=== PATIENT | female | born 1945 | race Caucasian/White ===

== ENCOUNTER → 2017-06-28 | Outpatient (CLI) | payer MEDICARE, OTHER ==
[~2017-06-28] MED LIST: ASPI325EC PO; ATEN100 PO; ATEN25 PO; ENAL5 PO; HYDCHL12.5 PO; LISI20 PO; LOVA20 PO; METPRE4DP PO; PRAV20 PO; RANI150 PO; Zofran8 MG PO; [UNRECOGNIZED DRUG - REMARK]
== END | disposition home or self-care (01) ==
LOC: LAB 12:29 → LAB SHORT 12:29
PROVIDERS: Registered Nurse
DX: Z12.4 Encounter for screening for malignant neoplasm of cervix (principal)
CPT/HCPCS: G0123

== ENCOUNTER → 2017-12-06 | Outpatient (CLI) | payer MEDICARE, OTHER ==
[~2017-12-06] MED LIST changes: +AMLO5 PO; +XARELTO20 MG PO
[2017-12-07 12:40] LABS: Bilirubin, Urine Neg (Neg); Blood, Urine 4+ (Neg); Glucose Qualitative, Urine Neg (Neg); Ketones, Urine Neg (Neg); Leukocyte Esterase, Urine 3+ (Neg); Nitrite, Urine Neg (Neg); Protein, Urine 2+ (Neg); Specific Gravity, Urine 1.025 (1.003-1.022); Urobilinogen, Urine 1+ (Normal)
[2017-12-07 13:20] LABS: Appearance, Urine Cloudy (Clear); Color, Urine Yellow (P-Yellow)
[2017-12-07 13:21] LABS: White Blood Cells, Urine 25-50 /hpf (0-5)
[2017-12-07 13:22] LABS: Amorphous Mod (0-Heavy); Bacteria Mod /hpf; Mucus Light (0-Heavy); Squamous Epithelial Cells Mod /hpf (Few)
== END | disposition home or self-care (01) ==
LOC: LAB SHORT 17:40 → LAB 17:40
PROVIDERS: Registered Nurse
DX: R82.90 Unspecified abnormal findings in urine (principal); R35.0 Frequency of micturition
CPT/HCPCS: 81001; 87077; 87086; 87186

== ENCOUNTER 2018-01-02 20:45 | Emergency (ER) | payer MEDICARE, OTHER ==
[~2018-01-02] VITALS: Ht 167.6 cm; Wt 65.8 kg
[2018-01-02 21:28] LABS: BASOPHILS ABSOLUTE AUTO 0.05 K/mm3 (0.00-0.23); BASOPHILS PERCENT AUTO 0 % (0-2); EOSINOPHILS PERCENT AUTO 2 % (0-6); Hematocrit 44.2 % (33.0-51.0); Hemoglobin 14.5 g/dL (11.5-16.0); IMMATURE GRAN ABSOLUTE AUTO 0.06 K/mm3 (0.00-0.10); IMMATURE GRAN PERCENT AUTO 0 % (0-1); LYMPHOCYTES ABSOLUTE AUTO 3.78 K/mm3 (0.84-5.20); LYMPHOCYTES PERCENT AUTO 27 % (21-46); MONOCYTES ABSOLUTE AUTO 1.12 K/mm3 (0.16-1.47); MONOCYTES PERCENT AUTO 8 % (4-13); Mean Corpuscular HGB Conc 32.8 g/dL (31.5-36.5); Mean Corpuscular Volume 85 fL (80-100); Mean Platelet Volume 12.8 fL (9.1-12.4); NEUTROPHILS ABSOLUTE AUTO 8.59 K/mm3 (1.96-9.15); NEUTROPHILS PERCENT AUTO 62 % (41-73); Platelet Count 218 K/mm3 (150-400); RDW Standard Deviation 43.5 fL (35.1-46.3); Red Blood Cell Count 5.18 M/mm3 (3.80-5.20)
[2018-01-02 21:53] LABS: Alanine Aminotransfer (ALT/SGP 22 U/L (12-78); Albumin, Blood 3.5 g/dL (3.4-5.0); Albumin/Globulin Ratio 0.9 (0.8-1.8); Alk Phos 68 U/L (50-136); Anion Gap 8 mmol/L (6-16); Aspartate Aminotrans (AST/SGOT 21 U/L (12-37); Bilirubin, Total 0.6 mg/dL (0.1-1.0); Blood Urea Nitrogen 17 mg/dL (8-24); Bun/Creatinine Ratio 8.9 (12.0-20.0); CO2, Blood 25 mmol/L (21-32); Calcium, Blood 9.1 mg/dL (8.5-10.1); Chloride, Blood 107 mmol/L (98-108); Glomerular Filtration Rate 28 (60-); Glucose, Blood 139 mg/dL (70-99); Potassium, Blood 3.7 mmol/L (3.5-5.5); Sodium, Blood 140 mmol/L (136-145); Total Protein, Blood 7.5 g/dL (6.4-8.2); Troponin I <0.015 ng/mL (0.000-0.040)
== END 2018-01-02 23:40 | disposition home or self-care (01) ==
LOC: ER 20:45
PROVIDERS: Internal Medicine
DX: R55 Syncope and collapse (principal); S20.212A Contusion of left front wall of thorax, initial encounter; E86.0 Dehydration; I95.9 Hypotension, unspecified; N17.9 Acute kidney failure, unspecified; I10 Essential (primary) hypertension; I25.2 Old myocardial infarction; I48.91 Unspecified atrial fibrillation; F17.200 Nicotine dependence, unspecified, uncomplicated; Z91.030 Bee allergy status; Z88.7 Allergy status to serum and vaccine; Z79.899 Other long term (current) drug therapy; W19.XXXA Unspecified fall, initial encounter; Y92.000 Kitchen of unspecified non-institutional (private) residence as the place of occurrence of the external cause
CPT/HCPCS: 36415; 71101; 80053; 84484; 85025; 93005; 93010; 96360; 99284-25; J7030

== ENCOUNTER → 2019-01-07 | Outpatient (CLI) | payer MEDICARE, OTHER ==
[2019-01-07 15:41] LABS: BASOPHILS ABSOLUTE AUTO 0.04 K/mm3 (0.00-0.23); BASOPHILS PERCENT AUTO 1 % (0-2); EOSINOPHILS ABSOLUTE AUTO 0.07 K/mm3 (0.00-0.68); EOSINOPHILS PERCENT AUTO 1 % (0-6); Hematocrit 44.2 % (33.0-51.0); Hemoglobin 14.5 g/dL (11.5-16.0); IMMATURE GRAN ABSOLUTE AUTO 0.02 K/mm3 (0.00-0.10); IMMATURE GRAN PERCENT AUTO 0 % (0-1); LYMPHOCYTES ABSOLUTE AUTO 2.12 K/mm3 (0.84-5.20); LYMPHOCYTES PERCENT AUTO 29 % (21-46); MONOCYTES ABSOLUTE AUTO 0.57 K/mm3 (0.16-1.47); MONOCYTES PERCENT AUTO 8 % (4-13); Mean Corpuscular HGB Conc 32.8 g/dL (31.5-36.5); Mean Corpuscular Volume 85 fL (80-100); Mean Platelet Volume 12.5 fL (9.1-12.4); NEUTROPHILS ABSOLUTE AUTO 4.56 K/mm3 (1.96-9.15); NEUTROPHILS PERCENT AUTO 62 % (41-73); Platelet Count 193 K/mm3 (150-400); RDW Coefficient Variation 14.6 % (11.7-14.2); RDW Standard Deviation 45.3 fL (35.1-46.3); Red Blood Cell Count 5.18 M/mm3 (3.80-5.20); White Blood Cell Count 7.38 K/mm3 (4.00-11.30)
[2019-01-07 16:01] LABS: Anion Gap 6 mmol/L (6-16); Blood Urea Nitrogen 15 mg/dL (8-24); Bun/Creatinine Ratio 10.7 (12.0-20.0); CO2, Blood 29 mmol/L (21-32); Calcium, Blood 8.5 mg/dL (8.5-10.1); Chloride, Blood 106 mmol/L (98-108); Glomerular Filtration Rate 37 (60-); Glucose, Blood 93 mg/dL (70-99); Potassium, Blood 4.1 mmol/L (3.5-5.5); Sodium, Blood 141 mmol/L (136-145); Thyroid Stimulating Hormone 2.309 uIU/mL (0.360-4.800); Troponin I <0.017 ng/mL (0.000-0.040)
== END | disposition home or self-care (01) ==
LOC: LAB SHORT 15:36 → LAB EV 15:36
PROVIDERS: Physician Assistant Surgical
DX: R07.89 Other chest pain (principal); R20.2 Paresthesia of skin
CPT/HCPCS: 80048; 84443; 84484; 85025

== ENCOUNTER → 2019-03-18 | Outpatient (CLI) | payer MEDICARE, OTHER | END | disposition home or self-care (01) | LOC: LAB SHORT 12:44 → LAB EV 12:44 | DX: N39.0 Urinary tract infection, site not specified (principal) | CPT/HCPCS: 87077; 87086; 87186 ==

== ENCOUNTER → 2019-04-17 | Outpatient (CLI) | payer MEDICARE, OTHER | END | disposition home or self-care (01) | LOC: LAB SHORT 11:27 → LAB EV 11:27 | DX: N39.0 Urinary tract infection, site not specified (principal) | CPT/HCPCS: 87086 ==

== ENCOUNTER 2019-09-25 17:54 | Emergency (ER) | payer MEDICARE, OTHER ==
[~2019-09-25] VITALS: Ht 165.1 cm; Wt 74.8 kg
[2019-09-25] MEDS ORDERED: Norco 5-325 Ta1 EACH PO (18:56)
== END 2019-09-25 19:15 | disposition home or self-care (01) ==
LOC: ER 17:54
DX: S93.401A Sprain of unspecified ligament of right ankle, initial encounter (principal); Z91.030 Bee allergy status; Z88.7 Allergy status to serum and vaccine; Z79.899 Other long term (current) drug therapy; I10 Essential (primary) hypertension; I25.2 Old myocardial infarction; I48.91 Unspecified atrial fibrillation; F17.200 Nicotine dependence, unspecified, uncomplicated; X50.1XXA Overexertion from prolonged static or awkward postures, initial encounter
CPT/HCPCS: 73610; 99283-25; A9270-GY

== ENCOUNTER → 2020-03-21 | Outpatient (CLI) | payer MEDICARE, OTHER ==
[~2020-03-21] MED LIST changes: +Norco 5-325 Ta1 EACH PO
[2020-03-21 19:29] LABS: BASOPHILS ABSOLUTE AUTO 0.05 K/mm3 (0.00-0.23); BASOPHILS PERCENT AUTO 1 % (0-2); EOSINOPHILS ABSOLUTE AUTO 0.11 K/mm3 (0.00-0.68); EOSINOPHILS PERCENT AUTO 2 % (0-6); Hematocrit 48.9 % (33.0-51.0); Hemoglobin 15.3 g/dL (11.5-16.0); IMMATURE GRAN ABSOLUTE AUTO 0.01 K/mm3 (0.00-0.10); IMMATURE GRAN PERCENT AUTO 0 % (0-1); LYMPHOCYTES PERCENT AUTO 30 % (21-46); MONOCYTES PERCENT AUTO 9 % (4-13); Mean Corpuscular HGB 27.7 pg (26.0-34.0); Mean Corpuscular HGB Conc 31.3 g/dL (31.5-36.5); Mean Corpuscular Volume 89 fL (80-100); NEUTROPHILS ABSOLUTE AUTO 3.88 K/mm3 (1.96-9.15); NEUTROPHILS PERCENT AUTO 58 % (41-73); Platelet Count 198 K/mm3 (150-400); RDW Coefficient Variation 14.3 % (11.7-14.2); RDW Standard Deviation 46.3 fL (35.1-46.3); Red Blood Cell Count 5.52 M/mm3 (3.80-5.20); White Blood Cell Count 6.65 K/mm3 (4.00-11.30)
[2020-03-21 19:48] LABS: Alanine Aminotransfer (ALT/SGP 28 U/L (12-78); Albumin, Blood 3.6 g/dL (3.4-5.0); Albumin/Globulin Ratio 1.1 (0.8-1.8); Alk Phos 87 U/L (50-136); Anion Gap 6 mmol/L (6-16); Aspartate Aminotrans (AST/SGOT 21 U/L (12-37); Bilirubin, Total 0.5 mg/dL (0.1-1.0); Blood Urea Nitrogen 20 mg/dL (8-24); Bun/Creatinine Ratio 16.3 (12.0-20.0); CHOL/HDL RATIO 3.6; CO2, Blood 26 mmol/L (21-32); Calcium, Blood 9.2 mg/dL (8.5-10.1); Chloride, Blood 110 mmol/L (98-108); Cholesterol 176 mg/dL (50-200); Creatinine, Blood 1.23 mg/dL (0.40-1.00); Globulin, Blood 3.4 g/dL (2.2-4.0); Glomerular Filtration Rate 46 (60-); Glucose, Blood 96 mg/dL (70-99); HDL Cholesterol 49 mg/dL (>39); LDL/HDL RATIO 2.1; Low Density Lipoprotein Chol 104 mg/dL (0-110); Potassium, Blood 4.1 mmol/L (3.5-5.5); Sodium, Blood 142 mmol/L (136-145); Triglycerides 114 mg/dL (30-160); Very Low Density Lipoprot Chol 22 mg/dL (6-32)
== END | disposition home or self-care (01) ==
LOC: LAB SHORT 17:27
PROVIDERS: Nurse Practitioner Family
DX: Z11.59 Encounter for screening for other viral diseases (principal); E78.00 Pure hypercholesterolemia, unspecified; I10 Essential (primary) hypertension
CPT/HCPCS: 80053; 80061; 84443; 85025; 86803

== ENCOUNTER → 2020-10-22 | Outpatient (CLI) | payer MEDICARE, OTHER | END | disposition home or self-care (01) | LOC: LAB SHORT 08:06 | DX: L60.2 Onychogryphosis (principal); B35.1 Tinea unguium | CPT/HCPCS: 88305; 88312 ==

== ENCOUNTER → 2021-05-03 | Outpatient (CLI) | payer MEDICARE, OTHER ==
[2021-05-03 15:04] LABS: BASOPHILS ABSOLUTE AUTO 0.03 K/mm3 (0.00-0.23); BASOPHILS PERCENT AUTO 0 % (0-2); EOSINOPHILS ABSOLUTE AUTO 0.03 K/mm3 (0.00-0.68); EOSINOPHILS PERCENT AUTO 0 % (0-6); Hematocrit 47.6 % (33.0-51.0); IMMATURE GRAN ABSOLUTE AUTO 0.01 K/mm3 (0.00-0.10); IMMATURE GRAN PERCENT AUTO 0 % (0-1); LYMPHOCYTES PERCENT AUTO 9 % (21-46); MONOCYTES ABSOLUTE AUTO 0.76 K/mm3 (0.16-1.47); MONOCYTES PERCENT AUTO 11 % (4-13); Mean Corpuscular HGB 29.1 pg (26.0-34.0); Mean Corpuscular HGB Conc 33.6 g/dL (31.5-36.5); Mean Corpuscular Volume 87 fL (80-100); Mean Platelet Volume 12.1 fL (9.1-12.4); NEUTROPHILS PERCENT AUTO 79 % (41-73); Platelet Count 157 K/mm3 (150-400); RDW Coefficient Variation 13.9 % (11.7-14.2); RDW Standard Deviation 43.9 fL (35.1-46.3); Red Blood Cell Count 5.49 M/mm3 (3.80-5.20); White Blood Cell Count 6.73 K/mm3 (4.00-11.30)
[2021-05-03 15:31] LABS: Albumin, Blood 3.7 g/dL (3.4-5.0); Albumin/Globulin Ratio 1.1 (0.8-1.8); Bilirubin, Total 0.4 mg/dL (0.1-1.0); Bun/Creatinine Ratio 9.3 (12.0-20.0); Calcium, Blood 8.3 mg/dL (8.5-10.1); Creatinine, Blood 1.08 mg/dL (0.40-1.00); Globulin, Blood 3.4 g/dL (2.2-4.0); Potassium, Blood 4.1 mmol/L (3.5-5.5); Total Protein, Blood 7.1 g/dL (6.4-8.2)
== END | disposition home or self-care (01) ==
LOC: LAB 14:56 → LAB SHORT 14:56
PROVIDERS: General Practice
DX: R07.9 Chest pain, unspecified (principal)
CPT/HCPCS: 80053; 84484; 85025

== ENCOUNTER 2021-07-05 06:28 | Inpatient (IN) | payer MEDICARE, OTHER ==
[~2021-07-05] VITALS: Ht 167.6 cm; Wt 74.8 kg
[~2021-07-05 06:28] MED LIST changes: -XARELTO20 MG PO; +Xarelto PO
[2021-07-05 06:49] LABS: BASOPHILS ABSOLUTE AUTO 0.03 K/mm3 (0.00-0.23); BASOPHILS PERCENT AUTO 0 % (0-2); EOSINOPHILS ABSOLUTE AUTO 0.11 K/mm3 (0.00-0.68); EOSINOPHILS PERCENT AUTO 1 % (0-6); Hematocrit 48.6 % (33.0-51.0); Hemoglobin 15.9 g/dL (11.5-16.0); IMMATURE GRAN ABSOLUTE AUTO 0.04 K/mm3 (0.00-0.10); IMMATURE GRAN PERCENT AUTO 0 % (0-1); LYMPHOCYTES ABSOLUTE AUTO 1.58 K/mm3 (0.84-5.20); LYMPHOCYTES PERCENT AUTO 11 % (21-46); MONOCYTES ABSOLUTE AUTO 0.61 K/mm3 (0.16-1.47); MONOCYTES PERCENT AUTO 4 % (4-13); Mean Corpuscular HGB 28.7 pg (26.0-34.0); Mean Corpuscular HGB Conc 32.7 g/dL (31.5-36.5); Mean Corpuscular Volume 88 fL (80-100); Mean Platelet Volume 12.5 fL (9.1-12.4); NEUTROPHILS ABSOLUTE AUTO 11.43 K/mm3 (1.96-9.15); NEUTROPHILS PERCENT AUTO 83 % (41-73); Platelet Count 190 K/mm3 (150-400); RDW Coefficient Variation 14.5 % (11.7-14.2); RDW Standard Deviation 46.7 fL (35.1-46.3); Red Blood Cell Count 5.54 M/mm3 (3.80-5.20)
[2021-07-05 07:08] LABS: Albumin, Blood 3.5 g/dL (3.4-5.0); Albumin/Globulin Ratio 0.9 (0.8-1.8); Bilirubin, Total 0.3 mg/dL (0.1-1.0); Bun/Creatinine Ratio 13.4 (12.0-20.0); Calcium, Blood 8.7 mg/dL (8.5-10.1); Creatinine, Blood 1.12 mg/dL (0.40-1.00); Globulin, Blood 3.9 g/dL (2.2-4.0); Potassium, Blood 3.8 mmol/L (3.5-5.5); Total Protein, Blood 7.4 g/dL (6.4-8.2)
[2021-07-05 08:30] LABS: CHOL/HDL RATIO 3.9; Cholesterol 178 mg/dL (50-200); HDL Cholesterol 46 mg/dL (>39); LDL/HDL RATIO 2.1; Low Density Lipoprotein Chol 97 mg/dL (0-110); Triglycerides 173 mg/dL (30-160); Very Low Density Lipoprot Chol 34 mg/dL (6-32)
--- NOTE | 2021-07-05 10:00 | NUR ---
PT CAME IN FROM ED AND C/O OF CP, NAUSEA, AND VOMITING. PT HAS HX OF MO IN 2010 PER PT. PT STATED SHE HAS DISCOMFORT ON HER MID LOWER BREAST WHEN SHE CAME IN TO ED , BUT DENIES DURING ASSESSMENT AT BEDSIDE WITH DR SANTACRUZ. SKIN INTACT, FAMILY AT BEDSIDE. PT GIVEN MED PER EMAR. BP IS ELEVATED AND MED GIVEN FOR HTN. PT ON TELE NS @60S. PT WILL HAVE A STRESS TEST TOMORROW. SEE ORDERS FOR PROCEDURE. PT IS 1P ASSIST, PT AOX4. BED IS IN THE LOWEST POSITION AND CALL LIGHT WITHIN REACH
[2021-07-05] MEDS ORDERED: VITAMIN D325 MC3 PO (11:19)
[2021-07-05] MEDS ORDERED: C COMPLEX1000 M1 PO (11:20)
--- NOTE | 2021-07-05 16:19 | NUR ---
NOTIFIED THE DR FOR SINUS PAUSE PER TELE. DR WILL TAKE A LOOK AT IT AT THE [facility]. PT DENIES ANY CHEST PAIN OR DISCOMFORT
--- NOTE | 2021-07-05 16:42 | NUR ---
SHIFT SUMMARY PT AOX4; CALLS APPROPRIATELY. STANDBY TO THE BATHROOM. PT FAMILY AT BEDSIDE. DENIES ANY CP AT THIS TIME. PT HAS A HEADACHE THAT WON'T GO AWAY, MEDICATED PER EMAR. NS RUNNING. NS TO GUSTABO 50S ON TELE. PT WILL HAVE A STRESS TEST IN THE AM. NAUSEA RESOLVING WITH MEDICATION. BED IS IN THE LOWEST POSTIION AND CALL LIGHT WITHIN REACH .
--- NOTE | 2021-07-05 18:28 | NUR ---
PT IS HAVING CHEST DISCOMFORT, SHE STATED "IT IS NOT A CHEST PAIN, BUT IT FEELS LIKE A DISCOMFORT AND WEIRD." DENIES ANY TINGLING OR ANY PAIN THAT RADIATE THROUGH NECK AND ARMS. THIS RN CALLED ERP MANAGER AND PT CONVERTED TO AFIB @ 120'S. PT WAS SINUS GUSTABO AND NSR ALL DAY. CALLED DR AND PT RECEIVED ONE DOSE OF NITRO SL. CHECKED THE BP IS STABLE, BUT HR IS TACHY 115-120S IRREGULAR.
--- NOTE | 2021-07-05 18:42 | NUR ---
PT STATED CHEST DISCOMFORT IS GETTING BETTER, RATING THE DISCOMFORT OF 2/10. CALLED THE DR FOR THE INCREASED HR; RECEIVED AN ORDER FOR ONE TIME DOSE OF METOPROLOL 25 MG.
--- NOTE | 2021-07-05 18:50 | NUR ---
PT IS NOW BACK TO SINUS GUSTABO 50'S PER TELE.
--- NOTE | 2021-07-06 06:29 | NUR ---
SUMMARY PT NPO FOR STRESS TEST TODAY. NOC/O CP THIS SHIFT.
--- NOTE | 2021-07-06 07:53 | NUR ---
MED PT WTIH TYLENOL FOR C/O H/A-PT STATES GETS TENORIO BASELINE AT HOME, WHICH SHE TREATS WITH TYLENOL.
[2021-07-06] MEDS ORDERED: AMIODARONE HCL100 M3 PO (16:35)
--- NOTE | 2021-07-06 18:06 | NUR ---
SHIFT SUMMARY PT A&OX4. PT DENIED CP, N/V, DYSPNEA & GENERAL PAIN THIS SHIFT. IS UP WITH MIN STDBY FOR USE OF RESTROOM. VSS. WILL HAVE STRESS PORTION OF STRESS TEST IN THE MORNING. NPO AFTER MIDNIGHT. PENDING STRESS TEST RESULTS, PT ANTICIPATES DC HOME TOMORROW.
--- NOTE | 2021-07-07 01:52 | NUR ---
TELE MONITOR PT WAS ON SINUS GUSTABO AT THE BEGINNING OF SHIFT. THEN SINUS RHYTHM AT 80'S UNTIL 2250. ELECTRICAL AND INSTRUMENTATION MANAGER JEANIE CALLED STATING PT ON AFIB 120-140'S. PT DENIES CHEST PAIN, NUMBNESS, TINGLING SENSATION, DIZZINESS AND SOB. CALLED DR. SPRINGER, NOTIFIED OF THIS. NEW ORDER FOR METOPROLOL TART 25MG NOW AND BID. HEART RATE NOT IMPROVED IN AN HOUR. TELE CALLED STATING THAT PT HAD AN EPISODE OF SVT 6 BEATS FOR 3 SEC AT 0030, ALSO PT STARTED COUGHING MORE FREQUENTLY WHILE THIS HAPPENED. TELE CALLED AGAIN AND STATING THAT PT HAD VTACH EPISODE 5-6 BEATS ONCE EVERY FEW MINUTES. MONITORED AND ASSES PT. SHE IS ASYMPTOMATIC. CALLED DR. ADAMS, NOTIFIED AND NEW ORDER WAS BEEN ADDED FOR LOPRESSOR 5MG IV NOW. CALLED TELE PRIOR ADMINISTERING MED. PT ON AFIB AT 144, IV LOPRESSOR GIVEN AND HR AND RHYTHM IMPROVED AFTER 30 MINS, PT CONVERTED BACK TO SINUS RHYTHM AT 70'S PER TELE.
--- NOTE | 2021-07-07 03:00 | NUR ---
0220: TELE REPORTS PT ON 140'S AFIB. PT RESTING IN ROOM PER MILI SHARMA, ASYMPTOMATIC. WILL CONTINUE TO MONITOR.
--- NOTE | 2021-07-07 04:12 | NUR ---
SHIFT SUMMARY PT ADMITTED FOR CHEST PAIN, NAUSEA AND VOMITING. PT ON TELE: SEE TELE REPORT FROM PREVIOUS NOTE. PT CONVERT TO AFIB, HAD AN EPISODE OF SVT AND VTACH. NOTIFIED HOSPITALIST AND NEW ORDER FOR METOPROLOL PO GIVEN AND BID FOR 25MG. AND LOPRESSOR 5MG ADMINISTERED ONCE TO CONTROL AFIB HR ON 120-160'S. PT DENIES ANY SYMPTOMS, NO CHEST PAIN, NO SOB, NO DIZZINESS, NO NUMBNESS AND NO TINGLING SENSATION. AMBULATES IN THE ROOM WITH 1 SBA. SHOWERED BEFORE BED. VOIDS FREQUENLTY AT NIGHT. PT ALSO HAS CHRONIC MILD COUGH. PLAN FOR RESTING STRESS TEST TODAY AND EVAL FROM CARDIOLOGY CONSULT. NPO AFTER MIDNIGHT, NO CAFFEINE AFTER 8PM LAST NIGHT. CALL LIGHT WITHIN REACH. WILL PROVIDE REPORT TO ONCOMING NURSE.
[2021-07-07 08:39] LABS: Bun/Creatinine Ratio 11.5 (12.0-20.0); Calcium, Blood 8.4 mg/dL (8.5-10.1); Creatinine, Blood 0.96 mg/dL (0.40-1.00); Potassium, Blood 3.7 mmol/L (3.5-5.5)
--- NOTE | 2021-07-07 10:38 | NUR ---
PHYSICIAN CONTACT PATIENT CONVERTED TO AFIB AT ABOUT 0900. THIS RN ALERTED BY [employer] THAT HR WAS SUSTAINING AROUND 125. MORNING MEDICATIONS GIVEN. RECHECK OF VITALS SHOWED DECREASED BP, BUT STILL HR SUSTAINING IN THE 120'S. DR. JOSUE NOTIFIED. NEW ORDERS FOR ONE TIME DOSE OF IV DIGOXIN 0.25MG. PER DR. JOSUE, NO NEED TO DELAY IN FINISHING STRESS TEST, HEART CENTER AND NUCLEAR MEDICINE NOTIFIED.
--- NOTE | 2021-07-07 13:46 | NUR ---
PHYSICIAN CONTACT PT C/O RED ITCHY RASH VISIBLE ON TORSO, PLAMS OF HANDS & PT STATES IS ALSO IN THE GROIN AREA. PLACED CALL TO WHO GAVE ORDERS FOR PO BENADRYL.
--- NOTE | 2021-07-07 13:48 | NUR ---
NURSE NOTE PAID SEARCH SPECIALIST CONFIRMED PT REMAINS IN A. FIB WITH HR IN THE 120s WITH PVCs.
--- NOTE | 2021-07-07 14:22 | NUR ---
NURSE NOTE PT REPORTS RED ITCHY RASH IMPROVED SINCE TAKING BENADRYL. IS RESTING QUIETLY.
--- NOTE | 2021-07-07 18:37 | NUR ---
SHIFT SUMMARY PT A&OX4. TELE SHOWS PT IN & OUT OF A.FIB THROUGHOUT SHIFT WITH HR IN THE 115-130 RANGE. SHE DOES GO INTO SR ONCE IN AWHILE THOUGH IS UNABLE TO SUSTAIN. MD ORDERED LANOXIN IV WHICH DID NOT CONVERT HER TO SR. MD ORDERED PO AMIODARONE. FIRST DOSE OF AMIODARONE GIVEN @ 1600. MEDICATED HER WITH BENADRYL FOR A RED ITCHY RASH THAT SHE REPORTS STARTED LAST NIGHT WHICH SHE REPORTS HELPED. STRESS TEST COMPLETED TODAY. SHE IS INDEPENDENT IN THE ROOM. ANTICIPATES POSSIBLE DC HOME TOMORROW. PT HAS BEEN PLEASANT & COOPERATIVE WITH ALL CARE TODAY.
--- NOTE | 2021-07-08 04:21 | NUR ---
SHIFT SUMMARY ADMITTED FOR CHEST PAIN. FULL CODE. PLAN IS TO DC HOME WHEN STABLE. TELEMETRY: AFIB @ 99 BPM. SHE IS ON A CARDIAC DIET. STANDBY ASSIST - BRP. SHE SEES DR. PLASENCIA OUTPT. SHE DID BRIEFLY DROP TO 47 BPM A FEW TIMES THIS SHIFT, SHE WAS ASYMPTOMATIC. HX: AFIB, PA
--- NOTE | 2021-07-08 10:00 | NUR ---
AFIB: PATIENT CONVERTED BACK TO AFIB THIS MORNING AROUND 8:00. PATIENT REPORTS THAT SHE DID NOT NOTICE THIS CONVERSION. AT THIS TIME, PATIENT REPORTS THAT SHE CAN FEEL IT IN HER CHEST, BUT DENIES CHEST PAIN, SHORTNESS OF BREATH, FATIGUE OR DIZZINESS. SPOKE WITH SUPERVISOR PARTICLEBOARD. SHE IS AVERAGING 110S IN AFIB, OCCASIONALLY TOUCHING INTO THE 120S.
[2021-07-08] MEDS ORDERED: METO50 PO (14:43)
[2021-07-08] MEDS ORDERED: ALEVAZOL56.7 G1 TOP (14:43)
--- NOTE | 2021-07-08 17:20 | NUR ---
DISCHARGE SUMMARY: PATIENT DENIED PAIN OR DISCOMFORT THROUGHOUT THE SHIFT. WHEN THE PATIENT CONVERTED TO AFIB THIS MORNING, SHE REPORTED THAT SHE COULD "FEEL IT IN HER CHEST". PATIENT DENIED FATIGUE, SHORTNESS OF BREATH, OR DIZZINESS. PATIENT CONVERTED TO NSR/NSBRADY AROUND 11:00. PATIENT REMAINED IN NSR/NSBRADY UNTIL DISCHARGE. RATE VARIED FROM LOW 50S TO MID 60S. PATIENT CONTINUED TO DENY CHEST PAIN OR DISCOMFORT. SHE REPORTED FEELING EVEN BETTER THAN THIS MORNING. DISCHARGE RX FAXED TO [facility] ON [address] PER PATIENT REQUEST. DISCHARGE INSTRUCTIONS AND EDUCATION PROVIDED. ALL QUESTIONS AND CONCERNS ADDRESS. PATIENT DISCHARGE IN WHEELCHAIR WITH RN AND PATIENT'S SON. PATIENT STABLE AT TIME OF DISCHARGE.
== END 2021-07-08 16:20 | disposition home or self-care (01) | DRG 313 ==
LOC: ER 06:28 → MEDS 06:29 → ER 06:30 → MEDS 06:30
PROVIDERS: Emergency Medicine; ADMIT Internal Medicine
DX: R07.89 Other chest pain (principal); R11.2 Nausea with vomiting, unspecified; R00.1 Bradycardia, unspecified; D72.829 Elevated white blood cell count, unspecified; I48.0 Paroxysmal atrial fibrillation; I12.9 Hypertensive chronic kidney disease with stage 1 through stage 4 chronic kidney disease, or unspecified chronic kidney disease; N18.9 Chronic kidney disease, unspecified; I25.10 Atherosclerotic heart disease of native coronary artery without angina pectoris; E78.5 Hyperlipidemia, unspecified; I25.2 Old myocardial infarction; F17.200 Nicotine dependence, unspecified, uncomplicated; Z71.6 Tobacco abuse counseling; Z98.890 Other specified postprocedural states; Z88.7 Allergy status to serum and vaccine; Z91.030 Bee allergy status; Z79.01 Long term (current) use of anticoagulants; Z79.899 Other long term (current) drug therapy; Z98.51 Tubal ligation status
CPT/HCPCS: 36415; 71045; 78452; 80048; 80053; 80061; 83690; 84443; 84484; 85025; 93005; 93010; 93017; 93306; 94762; 96374; 96375; 99285-25; A9270; A9500; G0378; J0706; J1160; J1885; J2405; J2785

== ENCOUNTER 2021-08-07 08:56 | Emergency (ER) | payer MEDICARE, OTHER ==
[~2021-08-07] VITALS: Ht 165.1 cm; Wt 74.8 kg
[~2021-08-07 08:56] MED LIST changes: +ALEVAZOL56.7 G1 TOP; +AMIODARONE HCL100 M3 PO; +C COMPLEX1000 M1 PO; +METO50 PO; +VITAMIN D325 MC3 PO
[2021-08-07] MEDS ORDERED: METO10 PO (10:39)
== END 2021-08-07 11:05 | disposition home or self-care (01) ==
LOC: ER 08:56
DX: G43.909 Migraine, unspecified, not intractable, without status migrainosus (principal); I10 Essential (primary) hypertension; I48.91 Unspecified atrial fibrillation; Z79.01 Long term (current) use of anticoagulants; Z79.899 Other long term (current) drug therapy; Z88.7 Allergy status to serum and vaccine; Z91.038 Other insect allergy status; Z72.0 Tobacco use
CPT/HCPCS: A9270; J2765; J7030

== ENCOUNTER → 2022-03-04 | Outpatient (CLI) | payer MEDICARE, OTHER ==
[~2022-03-04] MED LIST changes: +METO10 PO
[2022-03-04 11:21] LABS: BASOPHILS ABSOLUTE AUTO 0.03 K/mm3 (0.00-0.23); BASOPHILS PERCENT AUTO 0 % (0-2); EOSINOPHILS ABSOLUTE AUTO 0.03 K/mm3 (0.00-0.68); EOSINOPHILS PERCENT AUTO 0 % (0-6); Hematocrit 44.1 % (33.0-51.0); Hemoglobin 15.2 g/dL (11.5-16.0); IMMATURE GRAN ABSOLUTE AUTO 0.03 K/mm3 (0.00-0.10); IMMATURE GRAN PERCENT AUTO 0 % (0-1); LYMPHOCYTES ABSOLUTE AUTO 2.12 K/mm3 (0.84-5.20); LYMPHOCYTES PERCENT AUTO 27 % (21-46); MONOCYTES ABSOLUTE AUTO 0.46 K/mm3 (0.16-1.47); MONOCYTES PERCENT AUTO 6 % (4-13); Mean Corpuscular HGB 29.1 pg (26.0-34.0); Mean Corpuscular HGB Conc 34.5 g/dL (31.5-36.5); Mean Corpuscular Volume 85 fL (80-100); Mean Platelet Volume 12.3 fL (9.1-12.4); NEUTROPHILS ABSOLUTE AUTO 5.31 K/mm3 (1.96-9.15); NEUTROPHILS PERCENT AUTO 66 % (41-73); Platelet Count 194 K/mm3 (150-400); Red Blood Cell Count 5.22 M/mm3 (3.80-5.20); White Blood Cell Count 7.98 K/mm3 (4.00-11.30)
[2022-03-04 11:25] LABS: Bun/Creatinine Ratio 13.2 (12.0-20.0); Creatinine, Blood 2.27 mg/dL (0.40-1.00); Potassium, Blood 3.8 mmol/L (3.5-5.5)
== END | disposition home or self-care (01) ==
LOC: LAB SHORT 11:15 → LAB 11:15
PROVIDERS: Physician Assistant Surgical
DX: M62.81 Muscle weakness (generalized) (principal)
CPT/HCPCS: 80048; 85025

== ENCOUNTER → 2022-11-25 | Outpatient (CLI) | payer MEDICARE, OTHER ==
[2022-11-25 19:33] LABS: BASOPHILS ABSOLUTE AUTO 0.03 K/mm3 (0.00-0.23); BASOPHILS PERCENT AUTO 0 % (0-2); EOSINOPHILS ABSOLUTE AUTO 0.08 K/mm3 (0.00-0.68); EOSINOPHILS PERCENT AUTO 1 % (0-6); Hematocrit 41.5 % (33.0-51.0); Hemoglobin 13.2 g/dL (11.5-16.0); IMMATURE GRAN ABSOLUTE AUTO 0.02 K/mm3 (0.00-0.10); IMMATURE GRAN PERCENT AUTO 0 % (0-1); LYMPHOCYTES ABSOLUTE AUTO 1.84 K/mm3 (0.84-5.20); LYMPHOCYTES PERCENT AUTO 26 % (21-46); MONOCYTES ABSOLUTE AUTO 0.55 K/mm3 (0.16-1.47); MONOCYTES PERCENT AUTO 8 % (4-13); Mean Corpuscular HGB 28.3 pg (26.0-34.0); Mean Corpuscular HGB Conc 31.8 g/dL (31.5-36.5); Mean Corpuscular Volume 89 fL (80-100); NEUTROPHILS ABSOLUTE AUTO 4.48 K/mm3 (1.96-9.15); NEUTROPHILS PERCENT AUTO 64 % (41-73); Platelet Count 179 K/mm3 (150-400); RDW Coefficient Variation 14.8 % (11.7-14.2); RDW Standard Deviation 48.4 fL (35.1-46.3); Red Blood Cell Count 4.67 M/mm3 (3.80-5.20)
[2022-11-25 19:34] LABS: Mean Platelet Volume 13.1 fL (9.1-12.4)
[2022-11-25 20:12] LABS: Alanine Aminotransfer (ALT/SGP 36 U/L (12-78); Albumin, Blood 3.3 g/dL (3.4-5.0); Alk Phos 56 U/L (50-136); Anion Gap 6 mmol/L (6-16); Aspartate Aminotrans (AST/SGOT 26 U/L (12-37); Bilirubin, Total 0.4 mg/dL (0.1-1.0); Blood Urea Nitrogen 15 mg/dL (8-24); Bun/Creatinine Ratio 9.3 (12.0-20.0); CHOL/HDL RATIO 3.4; CO2, Blood 25 mmol/L (21-32); Calcium, Blood 8.8 mg/dL (8.5-10.1); Chloride, Blood 107 mmol/L (98-108); Cholesterol 149 mg/dL (50-200); Creatinine, Blood 1.61 mg/dL (0.40-1.00); Globulin, Blood 3.3 g/dL (2.2-4.0); Glomerular Filtration Rate 33 (60-); Glucose, Blood 106 mg/dL (70-99); HDL Cholesterol 44 mg/dL (>39); LDL/HDL RATIO 1.9; Low Density Lipoprotein Chol 83 mg/dL (0-110); Potassium, Blood 3.9 mmol/L (3.5-5.5); Sodium, Blood 138 mmol/L (136-145); Total Protein, Blood 6.6 g/dL (6.4-8.2); Triglycerides 109 mg/dL (30-160); Very Low Density Lipoprot Chol 21 mg/dL (6-32)
== END | disposition home or self-care (01) ==
LOC: LAB 16:54 → LAB SHORT 16:54
PROVIDERS: Nurse Practitioner Family
DX: E78.2 Mixed hyperlipidemia (principal); I10 Essential (primary) hypertension; R73.01 Impaired fasting glucose
CPT/HCPCS: 80053; 80061; 83036; 85025

== ENCOUNTER 2023-01-27 12:09 | Day surgery (SDC) | payer MEDICARE, OTHER ==
[~2023-01-27] VITALS: Ht 167.6 cm; Wt 68.1 kg
[2023-01-27 13:46] VITALS: BP 133/86
--- NOTE | 2023-01-27 14:04 | NUR ---
01/27/23 1404 Zach Baptiste IV REMOVED INTACT. SITE WNL. PT DENIES CARDIAC SYMPTOMS--INCLUDING CP, SOB, DIZZINESS--AND NON WERE OBSERVED.
== END 2023-01-27 14:01 | disposition home or self-care (01) ==
LOC: ORSCSDS 12:09
PROVIDERS: Ophthalmology
PROC: 08RK3JZ Replacement of Left Lens with Synthetic Substitute, Percutaneous Approach (ICD-10-PCS; principal; 2023-01-27 13:30)
DX: H25.13 Age-related nuclear cataract, bilateral (principal); H25.12 Age-related nuclear cataract, left eye; I10 Essential (primary) hypertension; I48.91 Unspecified atrial fibrillation; H18.00 Unspecified corneal deposit; I25.2 Old myocardial infarction; E78.5 Hyperlipidemia, unspecified; Z79.899 Other long term (current) drug therapy; Z79.01 Long term (current) use of anticoagulants
CPT/HCPCS: J2250; J3010; J3301; J7040; V2632

== ENCOUNTER 2023-02-03 07:20 | Day surgery (SDC) | payer MEDICARE, OTHER ==
[~2023-02-03] VITALS: Ht 167.6 cm; Wt 68.1 kg
--- NOTE | 2023-02-03 07:45 | NUR ---
02/03/23 0745 Jenny Ventura AT 0737 PLESULEMAET AT [id number]
[2023-02-03 08:52] VITALS: BP 129/74
--- NOTE | 2023-02-03 09:05 | NUR ---
02/03/23 0905 Zach Baptiste IV REMOVED INTACT. SITE WNL.
== END 2023-02-03 09:03 | disposition home or self-care (01) ==
LOC: ORSCSDS 07:20
PROVIDERS: Ophthalmology
PROC: 08RJ3JZ Replacement of Right Lens with Synthetic Substitute, Percutaneous Approach (ICD-10-PCS; principal; 2023-02-03 08:30)
DX: H25.11 Age-related nuclear cataract, right eye (principal); Z96.1 Presence of intraocular lens; E78.5 Hyperlipidemia, unspecified; I48.91 Unspecified atrial fibrillation; I10 Essential (primary) hypertension; Z79.01 Long term (current) use of anticoagulants; Z79.899 Other long term (current) drug therapy
CPT/HCPCS: J2001; J2250; J2704; J3301; J7040; V2632

== ENCOUNTER 2023-09-30 16:40 | Emergency (ER) | payer MEDICARE, OTHER ==
[~2023-09-30] VITALS: Ht 162.6 cm; Wt 68.0 kg
[2023-09-30 17:13] LABS: BASOPHILS ABSOLUTE AUTO 0.04 K/mm3 (0.00-0.23); BASOPHILS PERCENT AUTO 0 % (0-2); EOSINOPHILS ABSOLUTE AUTO 0.01 K/mm3 (0.00-0.68); EOSINOPHILS PERCENT AUTO 0 % (0-6); Hematocrit 42.8 % (33.0-51.0); IMMATURE GRAN ABSOLUTE AUTO 0.09 K/mm3 (0.00-0.10); IMMATURE GRAN PERCENT AUTO 1 % (0-1); LYMPHOCYTES ABSOLUTE AUTO 1.83 K/mm3 (0.84-5.20); LYMPHOCYTES PERCENT AUTO 13 % (21-46); MONOCYTES ABSOLUTE AUTO 1.06 K/mm3 (0.16-1.47); MONOCYTES PERCENT AUTO 7 % (4-13); Mean Corpuscular HGB 28.1 pg (26.0-34.0); Mean Corpuscular HGB Conc 32.7 g/dL (31.5-36.5); Mean Corpuscular Volume 86 fL (80-100); Mean Platelet Volume 12.4 fL (9.1-12.4); NEUTROPHILS ABSOLUTE AUTO 11.37 K/mm3 (1.96-9.15); NEUTROPHILS PERCENT AUTO 79 % (41-73); Platelet Count 235 K/mm3 (150-400); RDW Coefficient Variation 14.9 % (11.7-14.2); RDW Standard Deviation 46.8 fL (35.1-46.3); Red Blood Cell Count 4.99 M/mm3 (3.80-5.20)
[2023-09-30 17:56] LABS: Albumin/Globulin Ratio 0.7 (0.8-1.8); Bilirubin, Total 0.6 mg/dL (0.1-1.0); Bun/Creatinine Ratio 11.4 (12.0-20.0); Creatinine, Blood 0.96 mg/dL (0.40-1.00); Globulin, Blood 4.6 g/dL (2.2-4.0); Potassium, Blood 4.2 mmol/L (3.5-5.5); Total Protein, Blood 7.6 g/dL (6.4-8.2)
[2023-09-30] MEDS ORDERED: Ondansetron HCl 2 MG / ML 2ML Vial IV ONE (21:50)
[2023-09-30] MEDS ORDERED: Mag Hydrox/AL Hydrox/Simeth 30 ML UDC PO ONE (21:50)
[2023-09-30] MEDS ORDERED: Ketorolac Tromethamine 15mg Vial IV ONE (21:50)
[2023-09-30] MEDS ORDERED: NS 1,000 ML IV SCH (21:50)
[2023-09-30 22:30] VITALS: BP 141/74
[2023-09-30] MEDS ORDERED: RX Prepack 2 Tabs Ondansetron ODT 4MG UD ONE (22:45)
[2023-09-30] MEDS ORDERED: ONDA4 PO (22:47)
== END 2023-09-30 23:08 | disposition home or self-care (01) ==
LOC: ER 16:40
PROVIDERS: Physician Assistant
DX: U07.1 COVID-19 (principal); Z88.7 Allergy status to serum and vaccine; Z91.038 Other insect allergy status; Z79.899 Other long term (current) drug therapy
CPT/HCPCS: 71046; 80053; 83880; 84484; 85025; 93005; 93010; 96361; 96374; 96375; 99285-25; A9270; J1885; J2405; J7030

== ENCOUNTER → 2025-02-07 | Outpatient (CLI) | payer MEDICARE, OTHER ==
[~2025-02-07] MED LIST changes: +ONDA4 PO
[2025-02-07 12:36] LABS: Source, Urine Clean Catch
[2025-02-07 15:30] LABS: Bilirubin, Urine Neg (Neg); Color, Urine Yellow (P-Yellow); Glucose Qualitative, Urine Neg (Neg); Ketones, Urine Neg (Neg); Leukocyte Esterase, Urine 1+ (Neg); Protein, Urine 1+ (Neg); Specific Gravity, Urine 1.020 (1.003-1.022); Urobilinogen, Urine NORM (Normal)
[2025-02-07 15:42] LABS: Red Blood Cells, Urine 0-2 /hpf (0-2); Yeast/Fungi Urine Few /hpf
== END ==
LOC: LAB 12:35 → LAB SHORT 12:35 → LAB FUT 01-30 14:20 → EDSTATUS 01-30 14:20
PROVIDERS: Nurse Practitioner Family
DX: R32 Unspecified urinary incontinence (principal)
CPT/HCPCS: 81001; 87077; 87086; 87186